=== PATIENT | male | born 1935 | race Caucasian/White ===

== ENCOUNTER → 2023-10-12 | Outpatient (CLI) | payer MEDICARE, SELFPAY ==
[2023-10-12 11:26] LABS: Absolute Lymphocyte Count 1.03 X10^3/uL (0.83-4.51); Absolute Neutrophil Count 4.2 X10^3/uL (2.0-7.7); Basophil# 0.04 X10^3/uL; Basophil% 0.7 % (0-1); Eosinophil# 0.17 X10^3/uL; Eosinophils% 2.8 % (0-5); Hematocrit 48.1 % (40-54); Hemoglobin 15.5 g/dL (13.0-16.5); Lymphocyte # 1.03 X10^3/ul (0.83-4.51); Lymphocyte % 17.3 % (19-41); Mean Corp Hgb Conc 32.2 g/dL (32-36); Mean Corpuscular Volume 90.1 fL (80-94); Mean Platelet Vol. 11.3 fl (6.2-12.0); Monocyte# 0.48 X10^3/uL; NRBC Flagged by Analyzer 0 % (0-5); Neutrophil # 4.21 X10^3/uL (2.7-7.7); Neutrophil % 70.5 % (47-70); Platelet Count 163 K/mm3 (150-450); RBC Distribution Width SD 45.7 fl (35.1-43.9); Red Blood Count 5.34 M/mm3 (4.6-6.2)
[2023-10-12 11:48] LABS: Hemoglobin A1c 6.2 % (3.8-5.6)
[2023-10-12 11:58] LABS: ALB/GLOB Ratio 1.1 RATIO (0.9-2.4); AST(SGOT) 16 U/L (15-37); Alanine Aminotransfer ALT/SGPT 21 U/L (16-61); Albumin, Serum 3.4 g/dL (3.2-5.0); Alkaline Phosphatase 66 U/L (45-117); Anion Gap 4 (5-15); BUN 28 mg/dL (7-18); BUN/Creat Ratio 26.9 RATIO (10-20); Calcium,Total 9.1 mg/dL (8.5-10.1); Chloride 108 mmol/L (98-107); Creatinine, Serum 1.04 mg/dL (0.70-1.30); EST Glomerular Filtration Rate 71 mL/min (>60); Est Glom Filt Rate - Afr Amer 86 mL/min (>60); Glucose 186 mg/dL (74-106); PSA,Total- Diagnostic 2.89 ng/mL (0.0-4.0); Protein, Total 6.4 g/dL (6.4-8.2); Sodium Level 142 mmol/L (136-145); Vitamin D,25 Hydroxy 23.1 ng/mL
--- OUTSIDE RECORDS SUMMARY | 2023-10-12 18:11 | XMS RPT_ITS | CCD ---
Author Name Unknown Address [address] [place] [address] Organization [facility] Care Team Providers Care Manager Retirement Name Role Phone JAMIE WAGNER Attending JAMIE Amaya Referring Elis gomez PHYSICIAN, NOT RECORDED Attending MARINO Moreira Primary Care Unavail able TATA HICKMAN Admitting Unavailable TATA HICKMAN Attending Unavailable DERECK REYES FACP, SERGEY Saldaña Referring Unavail able Kasandra PTTata Unavailable Unavailable Medications Current Medications Medication Drug Class(es) Dates Sig (Normalized) Sig (Original) amLODIPine 5 mg oral tablet (1 source) Dihydropyridine Calcium Channel Javier Start: 02-05-2023 amLODIPine 5 mg oral tablet Dose : 5 mg = 1 tab(s), Oral, qDay, # 30 tab(s), 0 Refill(s), Pharmacy: [facility]/pharmacy #[id number], 172, cm, 02/04/23 20:53:00 EDT, Height Start Date: 02/05/23 Status: Ordered aspirin 81 mg delayed release oral tablet (1 source) Platelet Aggregation Inhibitor, Nonsteroidal Anti-inflammatory Drug Start: 12-27-2019 take 1 tablet by mouth twice daily aspirin 81 mg oral delayed release tablet Dose : 81 mg = 1 tab(s), Oral, BID, Take 81 mg aspirin twice daily with food for 4 weeks postoperatively for DVT prophylaxis, # 60 tab(s), 0 Refill(s) Start Date: 12/27/19 Status: Ordered Co Q-10 100 mg oral capsule (1 source) Start: 10-24-2019 Co Q-10 100 mg oral capsule Dose : 100 mg = 1 cap(s), Oral, Daily, 0 Refill(s) Start Date: 10/24/19 Status: Ordered famotidine 20 mg oral tablet (1 source) Histamine-2 Receptor Antagonist Start: 12-27-2019 Pepcid 20 mg oral tablet Dose : 20 mg = 1 tab(s), Oral, qDay, # 30 tab(s), 0 Refill(s) Start Date: 12/27/19 Status: Ordered Multivitamin preparation (1 source) Start: 10-24-2019 take 1 tablet by mouth once daily Multivitamin Dose = 1 tab(s), Oral, Daily, 0 Refill(s) Start Date: 10/24/19 Status: Ordered tamsulosin hydrochloride 0.4 mg oral capsule (1 source) alpha-Adrenergic Javier Start: 12-26-2019 Flomax 0.4 mg oral capsule Dose : 0.4 mg = 1 cap(s), Oral, qDay, # 30 cap(s), 0 Refill(s) Start Date: 12/26/19 Status: Ordered Vitamin C 250 mg oral tablet (1 source) Start: 10-24-2019 Vitamin C 250 mg oral tablet Dose : 250 mg = 1 tab(s), Oral, qDayM, # 30 tab(s), 0 Refill(s) Start Date: 10/24/19 Status: Ordered Problems Problem Classification Problem Date Documented Da te Episodic/Chronic Conditions associated with dizziness or vertigo (1 source) Dizziness and giddiness; Translations: [Dizziness and giddiness] Episodic Hyperplasia of prostate (1 source) Benign prostatic hyperplasia 02-05-2023 Chronic Other circulatory disease (1 source) History of transient ischemic attack; Translations: [Personal history of transient ischemic attack (TIA), and cerebral infarction without residual deficits] Episodic Other nervous system disorders (1 source) Abnormal gait; Translations: [Other abnormalities of gait and mobility] Episodic Results Test Name Value Interpretation Reference Range Facil ity Encounters Encounter Date Encounter Type Care Provider Facility Start: 03-11-2023 ambulatory J[facility]IE [facility] Facility:B Start: 03-11-2023 End: 04-08-2023 Physical therapy management JAMIE BAJWA [facility] Start: 03-06-2023 ambulatory NOT RECORDED PHYSICIAN Facility:B Start: 02-04-2023 End: 02-05-2023 ambulatory MARINO [facility]OPE[facility] Facility:B Procedures Date Procedure Procedure Detail Performing Clinician Start: 08-17-2016 Total knee [facility] Payers Date Payer Category Payer Unknown [id number] 1935 Unknown [id number] 1934 Unknown [id number] 1934 Unknown [id number] Social History Date Type Detail Facility Start: 10-24-2019 Tobacco smoking status Smoker ([facility]) [facility] Sex Assigned At Sex [facility] Clinical Note 02-06-2023 Note Date & Type Note Facility 02-06-2023 Note . MICRO - Microbiology PROCEDURE: Urine Culture [*1] SOURCE: Urine BODY SITE: COLLECTED DATE/TIME: 02/04/2023 17:59 EDT RECEIVED DATE/TIME: 02/05/2023 14:18 EDT START DATE/TIME: 02/05/2023 14:18 EDT FREE TEXT SOURCE: FINAL REPORTS Final Report [] Verified Date/Time/Personnel: 02/06/2023 09:02 EDT 10,000 - 50,000 cfu/ml Mixed growth consistent with normal urogenital matilda. Performing Locations *1: This test was performed at: [facility], [address] [place] [address], [address] [place] [address] ([place]) Evaluation + Plan note Note Date & Type Note Facility Evaluation + Plan note No data available for this section [facility] Hospital Discharge instructions Note Date & Type Note Facility Hospital Discharge instructions No data available for this section [facility] Progress note Note Date & Type Note Facility Progress note No data available for this section [facility] Summary Purpose Family History No Family History Records Found No data available for this section Advance Directives No Advanced Directives Records Found Additional Source Comments (unrecognized sect ion and content) No Status Records Found INFORMATION SOURCE (unrecogn ized section and content) Patient Care team informatio n (unrecognized section and content) Care Team Personnel Name: Kasandra Honey Producer Tata PT Position: P3 Scheduling - Single End Sewer Advanced Member Role: Other Care Team Related Persons Name: OSCARBEBETOMIKI FOR RECORDS PERTAINING TO PATIENTS WHO ARE OR HAVE BEEN ENROLLED IN A CHEMICAL DEPENDENCY/SUBSTANCEABUSE PROGRAM, SOME INFORMATION MAY BE OMITTED. This clinical summary was aggregated from multiple sources. Caution should be exercised in using it in the provision of clinical care. This summary normalizes information from multiple sources, and as a consequence, information in this document may materially change the coding, format and clinical context of patient data. In addition, data may be omitted in some cases. CLINICAL DECISIONS SHOULD BE BASED ON THE PRIMARY CLINICAL RECORDS. [facility] [employer] [facility]. provides no warranty or guarantee of the accuracy or completeness of information in this document.
== END | disposition home or self-care (01) ==
PROVIDERS: Referring Provider Nurse Practitioner Family; Visit Provider Nurse Practitioner Family
DX: R97.20 Elevated prostate specific antigen [PSA] (principal); E55.9 Vitamin D deficiency, unspecified; R73.03 Prediabetes; Z86.73 Personal history of transient ischemic attack (TIA), and cerebral infarction without residual deficits
CPT/HCPCS: 36415; 80053; 82306; 83036; 84153; 85025